=== PATIENT | male | born 1955 | race American Indian/Alaskan Native ===

== ENCOUNTER 2017-08-07 10:32 | Outpatient (CLI) | payer MEDICAID ==
--- NOTE | 2017-08-07 11:36 | XRay Report ---
Bilateral hips: Right hip pain. AP and frog-lateral views of both hips are included. Comparison is made to a prior exam in April 2015. The right hip is unremarkable with good preservation of the articular surface, joint alignment, and joint space. It appears unchanged from prior exam. There is mild narrowing of the superior left hip joint. The articular surfaces are smooth and the hip is in good position. This finding has worsened compared to the relatively normal joint space distance seen on prior exam. The SI joints are unremarkable as is the remainder of the pelvis. Impression: Interval narrowing of left superior hip joint.
== END 2017-08-07 10:33 | disposition home or self-care (01) ==
LOC: XRAY 10:32
PROVIDERS: ATTEND Pain Medicine Interventional Pain Medicine
DX: M25.551 Pain in right hip (principal)
CPT/HCPCS: 73521

== ENCOUNTER 2021-09-15 16:17 | Emergency (ER) | payer MEDICARE ==
[2021-09-15] MEDS ORDERED: ONDANSETRON 4 MG ODT TAB PO ONE (19:21)
[2021-09-15] MEDS ORDERED: predniSONE 20 MG TAB PO ONE (19:21)
[2021-09-15] MEDS ORDERED: oxyCODONE /ACETAMINOPHEN 5-325MG TAB PO ONE (19:21)
[2021-09-15 19:36] VITALS: BP 130/72
--- NOTE | 2021-09-15 20:01 | Emergency Department Report ---
ED Back Pain/Injury HPI - General Chief Complaint: Back Pain/Injury Stated Complaint: PAIN IN LEGS AND BACK Source: patient Limitations: No Limitations - History of Present Illness Initial Comments: Patient is a 66-year-old -[place] male with a history of chronic low back pain due to chronic lumbar disc disease, chronic bilateral hip osteoarthritis, hypertension, CVA, coronary artery disease s/p PTCA stents, [id number] diabetes, asthma and CHF who presents to the ED with acute exacerbation of his chronic low back pain and chronic bilateral hip pain that radiates to the left hip and left leg for the last 1 week. Patient states that he goes to a pain clinic for his chronic pain control but ran out of his medications that are prescribed by his provider and his appointment with the pain clinic is 2 weeks away. Patient states that he has not been able to sleep because of worsening low back pain that radiates to the left leg. Patient denies fall, traumatic injury, dizziness, syncope, chest pain or shortness of breath, numbness and tingling or weakness of lower extremities bilaterally, neck pain, headache, change in vision, abdominal pain, fever and chills, urinary or bowel incontinence. MD Complaint: back pain (Chronic low back pain that radiates to the left leg), other (Left hip pain that radiates to the left leg) -: Gradual, year(s) (4) Similar Symptoms Previously: Yes (Chronic low back pain with sciatica) Place: home Radiation: left leg Severity: severe Severity scale (0 -10): 8 Quality: sharp, aching Consistency: constant Improves With: none Worsens With: movement, sitting upright, walking Context: while lifting, turning/twisting Associated Symptoms: denies other symptoms, difficulty walking. denies: confusion, weakness, chest pain, cough, difficulty urinating, diaphoresis, incontinence, constipation, headaches, loss of appetite, malaise, nausea/vomiting, rash, seizure, shortness of breath, other - Related Data Home Medications Medication Instructions Recorded Confirmed Last Taken Albuterol Sulfate [Proventil HFA] 1 - 2 puff IH Q4H PRN 03/13/13 04/24/18 03/13/13 08:25 Clopidogrel [Plavix] 75 mg PO QDAY 03/13/13 04/24/18 03/12/13 09:00 Fluticasone/Salmeterol [Advair 1 puff IH BID 03/13/13 04/24/18 03/13/13 08:30 Diskus 250-50 mcg] Omeprazole [Prilosec] 40 mg PO QDAY 03/13/13 04/24/18 03/12/13 09:00 Pravastatin Sodium [Pravastatin] 20 mg PO QDAY 03/13/13 04/24/18 03/12/13 09:00 Tamsulosin [Flomax] 0.4 mg PO QDAY 03/13/13 04/24/18 03/12/13 21:00 Previous Rx's Medication Instructions Recorded Last Taken Type Cyclobenzaprine HCl [FLEXERIL] 10 mg PO Q4-6H PRN #20 tablet 04/22/13 Unknown Rx Ibuprofen [Motrin] 800 mg PO TID PRN #25 tablet 04/22/13 Unknown Rx traMADoL [Ultram] 50 mg PO Q4HR PRN #14 tablet 05/20/13 Unknown Rx Oxycodone HCl/Acetaminophen 1 each PO Q8H PRN #30 tablet 07/12/13 Unknown Rx [Percocet 10-325 mg] HYDROcodone/APAP 10-325 [[place] 1 each PO Q6HR PRN #15 tablet 05/30/15 Unknown Rx 10-325 mg TAB] methOCARBAMOL [Robaxin TAB] 750 mg PO Q8H PRN #15 tablet 09/15/21 Unknown Rx predniSONE [Deltasone] 60 mg PO QDAY #15 tab 09/15/21 Unknown Rx Allergies Allergy/AdvReac Type Severity Reaction Status Date / Time aspirin AdvReac Bleeding Verified 03/13/13 11:20 ED Review of Systems ROS: Stated complaint: PAIN IN LEGS AND BACK Other details as noted in HPI Constitutional: denies: chills, fever Eyes: denies: eye pain, eye discharge, vision change ENT: denies: ear pain, throat pain Respiratory: denies: cough, shortness of breath, wheezing Cardiovascular: denies: chest pain, palpitations Endocrine: no symptoms reported Gastrointestinal: denies: abdominal pain, nausea, diarrhea Genitourinary: denies: urgency, dysuria Musculoskeletal: back pain, arthralgia (Low back pain bilateral hip pain radiating to the left leg). denies: joint swelling Skin: denies: rash, lesions Neurological: denies: headache, weakness, paresthesias Psychiatric: denies: anxiety, depression Hematological/Lymphatic: denies: easy bleeding, easy bruising ED Past Medical Hx - Past Medical History Hx Hypertension: Yes Hx CVA: Yes Hx Heart Attack/AMI: Yes (5 stents) Hx Congestive Heart Failure: Yes Hx Diabetes: Yes Hx Arthritis: Yes Hx Asthma: Yes Additional medical history: Coronary Artery disease, Stomach ulcers, Recovering Alcoholic. last stent placed by [facility], [facility]year - Surgical History Hx Coronary Stent: Yes Additional Surgical History: L knee surgery, late . R knee surgery, ? 2 - Social History Smoking Status: Current Every Day Smoker - Medications Home Medications: Home Medications Medication Instructions Recorded Confirmed Last Taken Type Albuterol Sulfate [Proventil HFA] 1 - 2 puff IH Q4H PRN 03/13/13 04/24/18 03/13/13 08:25 History Clopidogrel [Plavix] 75 mg PO QDAY 03/13/13 04/24/18 03/12/13 09:00 History Fluticasone/Salmeterol [Advair 1 puff IH BID 03/13/13 04/24/18 03/13/13 08:30 History Diskus 250-50 mcg] Omeprazole [Prilosec] 40 mg PO QDAY 03/13/13 04/24/18 03/12/13 09:00 History Pravastatin Sodium [Pravastatin] 20 mg PO QDAY 03/13/13 04/24/18 03/12/13 09:00 History Tamsulosin [Flomax] 0.4 mg PO QDAY 03/13/13 04/24/18 03/12/13 21:00 History Cyclobenzaprine HCl [FLEXERIL] 10 mg PO Q4-6H PRN #20 tablet 04/22/13 04/24/18 Unknown Rx Ibuprofen [Motrin] 800 mg PO TID PRN #25 tablet 04/22/13 04/24/18 Unknown Rx traMADoL [Ultram] 50 mg PO Q4HR PRN #14 tablet 05/20/13 04/24/18 Unknown Rx Oxycodone HCl/Acetaminophen 1 each PO Q8H PRN #30 tablet 07/12/13 04/24/18 Unknown Rx [Percocet 10-325 mg] HYDROcodone/APAP 10-325 [[place] 1 each PO Q6HR PRN #15 tablet 05/30/15 04/24/18 Unknown Rx 10-325 mg TAB] methOCARBAMOL [Robaxin TAB] 750 mg PO Q8H PRN #15 tablet 09/15/21 Unknown Rx predniSONE [Deltasone] 60 mg PO QDAY #15 tab 09/15/21 Unknown Rx ED Physical Exam - General Limitations: No Limitations General appearance: alert, in no apparent distress - Head Head exam: Present: atraumatic, normocephalic, normal inspection - Eye Eye exam: Present: normal appearance, PERRL, EOMI Pupils: Present: normal accommodation - ENT ENT exam: Present: normal exam, normal orophraynx, mucous membranes moist, TM's normal bilaterally, normal external ear exam - Neck Neck exam: Present: normal inspection, full ROM. Absent: tenderness - Respiratory Respiratory exam: Present: normal lung sounds bilaterally. Absent: respiratory distress, wheezes, rales, stridor - Cardiovascular Cardiovascular Exam: Present: regular rate, normal rhythm, normal heart sounds. Absent: systolic murmur, diastolic murmur, rubs, gallop - GI/Abdominal GI/Abdominal exam: Present: soft, normal bowel sounds. Absent: tenderness, guarding, rebound, hyperactive bowel sounds, organomegaly, mass - Extremities Exam Extremities exam: Present: normal inspection, full ROM, tenderness (Palpable bilateral hip tenderness), normal capillary refill - Back Exam Back exam: Present: normal inspection, full ROM, tenderness (Palpable lumbosacral paraspinal musculoskeletal tenderness), muscle spasm, paraspinal tenderness. Absent: CVA tenderness (R), vertebral tenderness - Neurological Exam Neurological exam: Present: alert, oriented X3, CN II-XII intact, normal gait, reflexes normal - Psychiatric Psychiatric exam: Present: normal affect, normal mood - Skin Skin exam: Present: warm, dry, intact, normal color. Absent: rash ED Course Vital Signs 09/15/21 09/15/21 09/15/21 17:50 19:35 19:37 Temperature 98.0 F Pulse Rate 76 80 Respiratory 18 15 15 Rate Blood Pressure 104/74 130/72 [Right] O2 Sat by Pulse 98 100 Oximetry ED Medical Decision Making - Medical Decision Making This is a 66-year-old -[place] male with a history of chronic low back pain due to chronic lumbar disc disease, chronic bilateral hip osteoarthritis, hypertension, CVA, coronary artery disease s/p PTCA stents, [id number] diabetes, asthma and CHF who presents to the ED with acute exacerbation of his chronic low back pain and chronic bilateral hip pain that radiates to the left hip and left leg for the last 1 week. Patient states that he goes to a pain clinic for his chronic pain control but ran out of his medications that are prescribed by his provider and his appointment with the pain clinic is 2 weeks away. Patient states that he has not been able to sleep because of worsening low back pain that radiates to the left leg. In the ED, patient is alert and oriented x3 and is not in any distress. Patient however appears to be in significant pain. Patient was treated for pain in the ED. Given the fact that the patient attends pain clinic, no narcotic pain prescriptions were given to the patient from the ED, and defied the prescription to his pain clinic for further evaluation. This information was relayed to the patient who agreed with the plan of care. Patient was therefore advised to follow-up with his pain clinic in 7 to 10 days for reevaluation or return to the ED immediately if symptoms get worse. - Differential Diagnosis Chronic pain syndrome; chronic osteoarthritis; lumbar radiculopathy Critical care attestation.: If time is entered above; I have spent that time in minutes in the direct care of this critically ill patient, excluding procedure time. ED Disposition Clinical Impression: Acute exacerbation of chronic low back pain, Chronic lumbar radiculopathy, Spasm of muscle of lower back Disposition: 01 HOME / SELF CARE / HOMELESS Is pt being admited?: No Does the pt Need Aspirin: No Condition: Stable Instructions: Muscle Cramps and Spasms, [id number], Chronic Back Pain, Qfog-to-[id number], Muscle Cramps and Spasms Additional Instructions: Take medications with food, drink plenty of fluids and follow-up with your primary care physician in 7 to 10 days for reevaluation. Return to the ED immediately if symptoms get worse. Prescriptions: predniSONE [Deltasone] 60 mg PO QDAY #15 tab methOCARBAMOL [Robaxin TAB] 750 mg PO Q8H PRN #15 tablet PRN Reason: Muscle Spasm Referrals: [facility] [Provider Group] - 3-5 Days Time of Disposition: 20:06 Print Language: ESTONIAN
== END 2021-09-15 21:44 | disposition home or self-care (01) ==
LOC: ED 16:17
DX: M54.50 Low back pain, unspecified (principal); M54.16 Radiculopathy, lumbar region; M62.830 Muscle spasm of back; I11.0 Hypertensive heart disease with heart failure; I50.9 Heart failure, unspecified; I21.9 Acute myocardial infarction, unspecified; Z86.73 Personal history of transient ischemic attack (TIA), and cerebral infarction without residual deficits; E11.9 Type 2 diabetes mellitus without complications; M19.90 Unspecified osteoarthritis, unspecified site; J45.909 Unspecified asthma, uncomplicated; Z79.899 Other long term (current) drug therapy; Z98.890 Other specified postprocedural states; Z91.09 Other allergy status, other than to drugs and biological substances; F17.200 Nicotine dependence, unspecified, uncomplicated
CPT/HCPCS: 99282; J3490; Q0162